=== PATIENT | male | born 1985 | race Two or more races ===

== ENCOUNTER 2019-11-28 20:28 | Emergency (ER) | payer BC ==
[~2019-11-28] VITALS: Ht 185.4 cm; Wt 90.7 kg
[2019-11-28 20:31] VITALS: BP 147/92
--- NOTE | 2019-11-28 20:35 | NUR ---
ASHLY SUAREZ AT BEDSIDE
[2019-11-28] MEDS ORDERED: IBUPROFEN 600 MG TABLET PO ONE ×2 (21:00→21:06)
--- NOTE | 2019-11-28 21:54 | NUR ---
Patient discharged to home in stable condition. Written and verbal after care instructions given. Patient verbalizes understanding of instruction.
== END 2019-11-28 21:55 | disposition home or self-care (01) ==
LOC: ER 20:32
DX: J06.9 Acute upper respiratory infection, unspecified (principal); Z60.2 Problems related to living alone
CPT/HCPCS: 86403-TC; 87070-TC